=== PATIENT | male | born 1955 | race African-American/Black ===

== ENCOUNTER → 2018-12-19 | Outpatient (CLI) | payer BC ==
[2018-12-19 11:36] LABS: Basophils % (A) 1 %; Eosinophils # (A) 0.1 k/uL (0-0.7); Eosinophils % (A) 1 %; HGB 15.2 gm/dL (13.0-17.5); Lymphocytes % (A) 27 %; MCH 28.5 pg (25.0-35.0); MCHC 32.2 g/dL (31.0-37.0); MCV 88.4 fL (80.0-100.0); Mean Platelet Volume 7.5; Monocytes # (A) 0.3 k/uL (0-1.0); Monocytes % (A) 8 %; Neutrophils # (A) 2.3 k/uL (1.3-7.7); Neutrophils % (A) 60 %; Platelet Count 206 k/uL (150-450); RBC 5.32 m/uL (4.30-5.90); RDW 12.7 % (11.5-15.5); WBC 3.8 k/uL (3.8-10.6)
[2018-12-19 16:31] LABS: African American GFR (CKD) 103.5 (60.0-200.0); Albumin 4.7 g/dL (3.80-4.90); Albumin/Globulin Ratio 2.04 (1.60-3.17); Anion Gap 10.8 mmol/L (4.00-12.00); BUN/Creat Ratio 15.56 Ratio (12.00-20.00); Calcium 9.6 mg/dL (8.7-10.3); Carbon Dioxide 23.2 mmol/L (21.6-31.8); Chol/HDL Ratio 2.4; Globulin 2.3 g/dL (1.6-3.3); LDL Cholesterol,Calculated 67.2 mg/dL (0.0-131.0); Potassium 4.5 mmol/L (3.5-5.5); Total Bilirubin 0.7 mg/dL (0.2-1.2); VLDL Calculation 12.8 mg/dL (5.00-40.00)
[2018-12-19 16:40] LABS: T4, Free (Free Thyroxine) 2.2 ng/dL (0.80-1.80)
== END | disposition home or self-care (01) ==
LOC: LABWHC1 10:00
PROVIDERS: ATTEND Family Medicine
DX: E03.9 Hypothyroidism, unspecified (principal); Z12.5 Encounter for screening for malignant neoplasm of prostate
CPT/HCPCS: 84439; 84481; 80061; 80053; 84443; 85025; 36415; G0103

== ENCOUNTER → 2021-03-09 | Outpatient (CLI) | payer BC ==
[2021-03-09 22:37] LABS: Basophils # (A) 0.06 X 10*3/uL (0.00-0.10); Basophils % (A) 0.9 %; Eosinophils # (A) 0.05 X 10*3/uL (0.04-0.35); Eosinophils % (A) 0.8 %; HCT 51.9 % (39.6-50.0); HGB 16.6 g/dL (13.0-17.0); Lymphocytes # (A) 1.27 X 10*3/uL (0.90-5.00); MCH 28.4 pg (27.0-32.0); MCV 88.7 fL (80.0-97.0); Mean Platelet Volume 11.8 fL (9.5-12.2); Monocytes # (A) 0.88 X 10*3/uL (0.20-1.00); Monocytes % (A) 13.9 %; Neutrophils # (A) 4.02 X 10*3/uL (1.80-7.70); Neutrophils % (A) 63.5 %; Platelet Count 258 X 10*3/uL (140-440); RBC 5.85 X 10*6/uL (4.40-5.60); RDW 12.1 % (11.5-14.5); WBC 6.34 X 10*3/uL (4.50-10.00)
[2021-03-09 22:46] LABS: African American GFR (CKD) 60.4 (60.0-200.0); Albumin 4.5 g/dL (3.8-4.9); Albumin/Globulin Ratio 1.16 (1.60-3.17); Anion Gap 14.1 mmol/L (10.00-18.00); BUN/Creat Ratio 9.28 Ratio (12.00-20.00); Blood Urea Nitrogen 12.9 mg/dL (9.0-27.0); Calcium 9.8 mg/dL (8.7-10.3); Carbon Dioxide 22.3 mmol/L (20.0-27.5); Globulin 3.9 g/dL (1.6-3.3); Non-African American GFR(CKD) 52.1 (60.0-200.0); Potassium 4.3 mmol/L (3.5-5.5); Total Bilirubin 0.4 mg/dL (0.30-1.20); Total Protein 8.4 g/dL (6.2-8.2)
== END | disposition home or self-care (01) ==
LOC: LABWHC1 15:23
PROVIDERS: ATTEND Nurse Practitioner Family
DX: L03.211 Cellulitis of face (principal)
CPT/HCPCS: 36415; 80053; 85025

== ENCOUNTER → 2021-04-10 | Outpatient (CLI) | payer BC ==
[2021-04-11 13:12] LABS: Coronavirus SARS CoV-2 Not Detected (Not Detected)
== END | disposition home or self-care (01) ==
LOC: LABWHC1 10:11
PROVIDERS: ATTEND Family Medicine
DX: J06.9 Acute upper respiratory infection, unspecified (principal)
CPT/HCPCS: 87502; U0003; C9803; U0005

== ENCOUNTER → 2023-01-27 | Outpatient (CLI) | payer BC ==
[2023-01-27 15:16] LABS: Basophils # (A) 0.04 X 10*3/uL (0.00-0.10); Basophils % (A) 0.7 %; Eosinophils # (A) 0.04 X 10*3/uL (0.04-0.35); Eosinophils % (A) 0.7 %; HCT 48.7 % (39.6-50.0); HGB 16.4 g/dL (13.0-17.0); Lymphocytes # (A) 1.57 X 10*3/uL (0.90-5.00); Lymphocytes % (A) 26.4 %; MCH 28.1 pg (27.0-32.0); MCHC 33.7 g/dL (32.0-37.0); MCV 83.4 FL (80.0-97.0); Monocytes # (A) 0.58 X 10*3/uL (0.20-1.00); Monocytes % (A) 9.7 %; NRBC Per 100 WBC 0 X 10*3/uL (0.00-0.01); Neutrophils # (A) 3.68 X 10*3/uL (1.80-7.70); Neutrophils % (A) 61.8 %; Platelet Count 229 X 10*3/uL (140-440); RBC 5.84 X 10*6/uL (4.40-5.60); RDW 12.2 % (11.5-14.5); WBC 5.95 X 10*3/uL (4.50-10.00)
[2023-01-27 15:51] LABS: ALT 32 U/L (10-49); AST 19 U/L (14-35); Albumin 4.8 g/dL (3.8-4.9); Alkaline Phosphatase 102 U/L (41-126); BUN/Creat Ratio 19.81 Ratio (12.00-20.00); Blood Urea Nitrogen 31.7 mg/dL (9.0-27.0); Carbon Dioxide 24.9 mmol/L (21.6-31.8); Chloride 94 mmol/L (96-109); Chol/HDL Ratio 3.11 Ratio; Glucose 310 mg/dL (70-110); LDL Cholesterol,Calculated 80.1 mg/dL (0.0-131.0); Potassium 4.3 mmol/L (3.5-5.5); Prostate Specific Antigen 1.86 ng/mL (0.000-4.500); Sodium 134 mmol/L (135-145); T4, Free (Free Thyroxine) 2.54 ng/dL (0.80-1.80); Total Bilirubin 0.5 mg/dL (0.3-1.2); Total Protein 7.8 g/dL (6.2-8.2)
== END | disposition home or self-care (01) ==
LOC: LABWHC1 09:33
PROVIDERS: ATTEND Family Medicine
DX: Z12.11 Encounter for screening for malignant neoplasm of colon (principal); Z12.5 Encounter for screening for malignant neoplasm of prostate; E78.5 Hyperlipidemia, unspecified; E03.9 Hypothyroidism, unspecified
CPT/HCPCS: 36415; 80053; 80061; 83036; 84153; 84439; 84443; 84481; 85025